=== PATIENT | male | born 1975 | race Caucasian/White ===

== ENCOUNTER 2018-01-04 18:57 | Emergency (ER) | payer BC ==
[2018-01-04 18:58] VITALS: BMI 29.2
[2018-01-04] MEDS ORDERED: Naproxen 550 mg Tab PO STA (20:12)
--- NOTE | 2018-01-04 20:13 | C.PDOC ---
History Of Present Illness 42 year old male, with no significant PMHx, presents to the ED for evaluation of cough and muscle aches which began a couple days ago. Patient reports pain to right anterior chest wall that is worse with cough and taking deep breaths. Patient reports generalized weakness and feeling "flushed." Denies fever, chills , shortness of breath. Chief Complaint (Nursing): Chest Pain History Per: Patient History/Exam Limitations: no limitations Onset/Duration Of Symptoms: Days Current Symptoms Are (Timing): Still Present Quality: "Pain" Exacerbating Factors: Deep Breathing Additional History Per: Patient Past Medical History Reviewed: Historical Data, Vital Signs Vital Signs: Last Vital Signs Temp 98.7 F 01/04/18 21:43 Pulse 97 H 01/04/18 21:43 Resp 20 01/04/18 21:43 BP 149/87 01/04/18 21:43 Pulse Ox 98 01/04/18 21:43 - Medical History PMH: HTN Denies: Diabetes, Hepatitis, HIV, Chronic Kidney Disease, Seizures, Sexually Transmitted Disease Surgical History: No Surg Hx - [facility] DETOXIFICATION SERVICES FOR SUBSTANCE ABUSE TREATMENT (01/17/16) Family History: States: Unknown Family Hx - Social History Hx Alcohol Use: Yes Hx Substance Use: No - Immunization History Hx Tetanus Toxoid Vaccination: No Hx Influenza Vaccination: No Hx Pneumococcal Vaccination: No Review Of Systems Constitutional: Positive for: Weakness. Negative for: Fever, Chills Cardiovascular: Positive for: Other (right anterior chest wall pain ) Respiratory: Positive for: Cough. Negative for: Shortness of Breath Physical Exam - Physical Exam Appears: Non-toxic, No Acute Distress Skin: Normal Color, Warm, Dry Head: Atraumatic, Normacephalic Eye(s): bilateral: Normal Inspection Ear(s): Bilateral: Normal Nose: Normal, No Discharge Oral Mucosa: Moist Throat: Normal, No Erythema, No Exudate Neck: Supple Chest: Symmetrical, No Deformity, Tenderness (right-sided to anterior pectoralis muscle on palpation ) Cardiovascular: Rhythm Regular, No Murmur Respiratory: Normal Breath Sounds, No Rales, No Rhonchi, No Wheezing Gastrointestinal/Abdominal: Soft, No Tenderness, No Guarding, No Rebound Extremity: Normal ROM, Capillary Refill (less than 2 seconds ) Neurological/Psych: Oriented x3, Normal Speech, Normal Cognition Gait: Steady ED Course And Treatment O2 Sat by Pulse Oximetry: 95 (on RA) Pulse Ox Interpretation: Normal Medical Decision Making Medical Decision Making: Impression: URI, possible Influenza, chest wall pain Progress: will perform 2 view chest XR to r/o PNA. If negative, will treat for flu. CXR and EKG ordered. Naproxen PO and Tamiflu PO administered. CXR shows no active pulmonary disease. Cardiac silhouette is within normal limits. Will treat for flu and then discharge. Disposition - Disposition Referrals: Paradise Lenz MD [Medical Doctor] - Disposition: HOME/ ROUTINE Disposition Time: 03:37 Condition: FAIR Prescriptions: Oseltamivir [Tamiflu] 75 mg PO BID #10 cap Instructions: Flu Forms: [facility] (Tajik), Work Excuse Print Language: [id number] - Clinical Impression Clinical Impression: Influenza - Scribe Statement The provider has reviewed the documentation as recorded by the Scribe (Sarah Cummins) Provider Attestation: All medical record entries made by the Scribe were at my direction and personally dictated by me. I have reviewed the chart and agree that the record accurately reflects my personal performance of the history, physical exam, medical decision making, and the department course for this patient. I have also personally directed, reviewed, and agree with the discharge instructions and disposition.
[2018-01-04] MEDS ORDERED: Naproxen 550 mg Tab PO ONE (20:20)
[2018-01-04 21:44] VITALS: BP 149/87; PULSE 97; RESP 20; TEMP 98.7
[2018-01-05 03:38] VITALS: O2SAT 95
--- NOTE | 2018-01-05 10:11 | RAD ---
HISTORY: Chest pain. COMPARISON: Comparison made with chest radiograph dated 01/17/2016. TECHNIQUE: Chest PA and lateral FINDINGS: LUNGS: Minor curvilinear atelectasis and or scarring left lung base. PLEURA: No significant pleural effusion identified. No pneumothorax apparent. CARDIOVASCULAR: Normal. OSSEOUS STRUCTURES: No significant abnormalities. VISUALIZED UPPER ABDOMEN: Normal. OTHER FINDINGS: None. IMPRESSION: Suspect minor curvilinear atelectasis and or scarring left lung base.
--- NOTE | 2018-01-05 11:42 | CARD ---
APPROVED REPORT EKG Measurement Heart [id number] <Conclusion> Normal sinus rhythm Possible Left atrial enlargement Borderline ECG
== END 2018-01-04 21:44 | disposition home or self-care (01) ==
LOC: SUPCPDRO 18:57 → C.ER 18:57
DX: J11.1 Influenza due to unidentified influenza virus with other respiratory manifestations (principal); I10 Essential (primary) hypertension